=== PATIENT | male | born 1950 | race Caucasian/White ===

== ENCOUNTER 2016-09-13 01:12 | Emergency (ER) | payer MEDICARE ==
[~2016-09-13] VITALS: Ht 170.2 cm; Wt 75.9 kg
[~2016-09-13 01:12] MED LIST: AMANL PO; BENZ1TAB10 PO; DOCU-119 PO; LEVO50 PO; LISI-662 PO; OMEP20 PO; QUET100T PO; ROPI3TAB PO; SERT50TA12 PO; STAL150 PO; VITAD1000 PO
[2016-09-13 02:05] LABS: BASOPHILS # (AUTO) 0.03 K/uL (0.00-0.20); BASOPHILS % (AUTO) 0.6 % (0.0-2.0); EOSINOPHILS # (AUTO) 0.49 K/uL (0.00-0.70); LYMPHOCYTES % (AUTO) 16.8 % (22.0-44.0); MEAN CORPUSCULAR HEMOGLOBIN 30.6 pg (26.0-34.0); MEAN CORPUSCULAR HGB CONC 33.5 G/dL (31.0-37.0); MEAN CORPUSCULAR VOLUME 91 fL (80-100); MONOCYTES # (AUTO) 0.7 K/uL (0.1-1.0); NEUTROPHILS # (AUTO) 3.8 K/uL (1.8-7.7); NEUTROPHILS % (AUTO) 63.4 % (40.0-70.0); PLATELET COUNT (AUTO) 173 K/uL (150-450); RED BLOOD CELL COUNT(AUTO) 4.27 MIL/uL (4.50-5.90); RED CELL DISTRIBUTION WIDTH 13.9 % (11.5-14.5)
[2016-09-13 02:19] LABS: ANION GAP 7 mmol/L (8-16); CARBON DIOXIDE 30 mmol/L (22-29); CHLORIDE 105 mmol/L (98-107); CREATININE 1.28 mg/dL (0.60-1.30); GLOMERULAR FILTR. RATE CALC 56 mL/min (>60); POTASSIUM 3.9 mmol/L (3.5-5.1); SODIUM SERUM 142 mmol/L (136-145); UREA NITROGEN, BLOOD 26 mg/dL (7-18)
[2016-09-13 02:21] LABS: ALANINE AMINOTRANSFERASE 7 U/L (12-78); ALBUMIN 3.7 g/dL (3.4-5.0); ASPARTATE AMINOTRANSFERASE 19 U/L (15-37); BILIRUBIN,TOTAL 0.6 mg/dL (0.1-1.0); TOTAL PROTEIN, SERUM 7.8 g/dL (6.4-8.2)
[2016-09-13] MEDS ORDERED: LORazepam 1 MG TABLET PO ONE (05:00)
[2016-09-13 05:42] VITALS: BP 119/86
== END 2016-09-13 06:33 | disposition home or self-care (01) ==
LOC: EMS 01:14
DX: F25.9 Schizoaffective disorder, unspecified (principal); F41.9 Anxiety disorder, unspecified; F32.9 Major depressive disorder, single episode, unspecified; I10 Essential (primary) hypertension; E78.00 Pure hypercholesterolemia, unspecified; E03.9 Hypothyroidism, unspecified; K21.9 Gastro-esophageal reflux disease without esophagitis
CPT/HCPCS: 36415; 80053; 85025; 99285; G0480

== ENCOUNTER 2016-09-16 14:15 | Emergency (ER) | payer MEDICARE ==
[2016-09-16] MEDS ORDERED: FAMO20 PO (23:28)
[2016-09-16] MEDS ORDERED: AMAN100C12 PO (23:28)
[2016-09-16] MEDS ORDERED: LISI-662 PO (23:28)
[2016-09-16] MEDS ORDERED: ENTA200 PO (23:28)
[2016-09-16] MEDS ORDERED: ROPI2 PO (23:28)
[2016-09-16] MEDS ORDERED: BENZ1TAB10 PO (23:28)
[2016-09-16] MEDS ORDERED: QUET100T PO (23:28)
[2016-09-16] MEDS ORDERED: SERT50TA12 PO (23:28)
[2016-09-16] MEDS ORDERED: ENOX40DI9 SQ (23:28)
[2016-09-16] MEDS ORDERED: DSS100 PO (23:28)
[2016-09-16] MEDS ORDERED: CARB1TAB41 PO (23:28)
[2016-09-16] MEDS ORDERED: LEVO50 PO (23:28)
== END 2016-09-16 15:54 | disposition left against medical advice (07) ==
LOC: EMS 14:18
DX: Z00.8 Encounter for other general examination (principal); Z53.21 Procedure and treatment not carried out due to patient leaving prior to being seen by health care provider

== ENCOUNTER 2016-09-16 16:32 | Emergency (ER) | payer MEDICARE ==
[~2016-09-16] VITALS: Ht 172.7 cm; Wt 77.3 kg
[2016-09-16] MEDS ORDERED: HALOPERIDOL 5 MG TABLET PO ONE (18:30)
[2016-09-16] MEDS ORDERED: LORazepam 2 MG TABLET PO ONE (18:30)
[2016-09-16 18:41] LABS: BASOPHILS % (AUTO) 0.1 % (0.0-2.0); EOSINOPHILS % (AUTO) 4.6 % (1.0-6.0); HEMOGLOBIN 13.3 g/dL (13.5-17.5); LYMPHOCYTES % (AUTO) 12.2 % (22.0-44.0); MEAN CORPUSCULAR HEMOGLOBIN 30.2 pg (26.0-34.0); MEAN CORPUSCULAR HGB CONC 32.5 G/dL (31.0-37.0); MEAN CORPUSCULAR VOLUME 93 fL (80-100); MONOCYTES # (AUTO) 0.8 K/uL (0.1-1.0); MONOCYTES % (AUTO) 10.1 % (2.0-9.0); NEUTROPHILS # (AUTO) 5.9 K/uL (1.8-7.7); PLATELET COUNT (AUTO) 176 K/uL (150-450); RED BLOOD CELL COUNT(AUTO) 4.42 MIL/uL (4.50-5.90); RED CELL DISTRIBUTION WIDTH 13.4 % (11.5-14.5); WHITE BLOOD COUNT (AUTO) 8.1 K/uL (4.5-11.0)
[2016-09-16 18:50] LABS: ANION GAP 9 mmol/L (8-16); CALCIUM, TOTAL 9.2 mg/dL (8.8-10.5); CARBON DIOXIDE 29 mmol/L (22-29); CHLORIDE 106 mmol/L (98-107); CREATININE 1.26 mg/dL (0.60-1.30); GLOMERULAR FILTR. RATE CALC 57 mL/min (>60); POTASSIUM 4.3 mmol/L (3.5-5.1); SODIUM SERUM 144 mmol/L (136-145); UREA NITROGEN, BLOOD 25 mg/dL (7-18)
[2016-09-16 18:56] LABS: ALANINE AMINOTRANSFERASE 8 U/L (12-78); ALBUMIN 3.8 g/dL (3.4-5.0); ASPARTATE AMINOTRANSFERASE 22 U/L (15-37); BILIRUBIN,TOTAL 0.7 mg/dL (0.1-1.0); TOTAL PROTEIN, SERUM 7.9 g/dL (6.4-8.2)
[2016-09-16 20:21] VITALS: BP 108/65
[2016-09-16] MEDS ORDERED: DSS100 PO (23:28)
[2016-09-16] MEDS ORDERED: LISI-662 PO (23:28)
[2016-09-16] MEDS ORDERED: SERT50TA12 PO (23:28)
[2016-09-16] MEDS ORDERED: ROPI2 PO (23:28)
[2016-09-16] MEDS ORDERED: CARB1TAB41 PO (23:28)
[2016-09-16] MEDS ORDERED: AMAN100C12 PO (23:28)
[2016-09-16] MEDS ORDERED: QUET100T PO (23:28)
[2016-09-16] MEDS ORDERED: FAMO20 PO (23:28)
[2016-09-16] MEDS ORDERED: ENTA200 PO (23:28)
[2016-09-16] MEDS ORDERED: BENZ1TAB10 PO (23:28)
[2016-09-16] MEDS ORDERED: LEVO50 PO (23:28)
[2016-09-16] MEDS ORDERED: ENOX40DI9 SQ (23:28)
== END 2016-09-16 20:24 | disposition home or self-care (01) ==
LOC: EDBD → EMS 16:34 → MERGE 16:34 → EMS 20:24
DX: F25.9 Schizoaffective disorder, unspecified (principal); F32.9 Major depressive disorder, single episode, unspecified; I10 Essential (primary) hypertension; E03.9 Hypothyroidism, unspecified; K21.9 Gastro-esophageal reflux disease without esophagitis
CPT/HCPCS: 36415; 80053; 85025; 99285; G0480

== ENCOUNTER 2016-09-16 21:01 | Emergency (ER) | payer MEDICARE ==
[~2016-09-16] VITALS: Ht 175.3 cm; Wt 88.6 kg
[2016-09-16 21:22] LABS: GLUCOSE,POINT OF CARE 72 MG/DL (70-110)
[2016-09-16] MEDS ORDERED: SODIUM CHLORIDE 0.9% 1,000 ML IV ONE (21:45)
[2016-09-16] MEDS ORDERED: BENZTROPINE MESYLATE 1 MG/ML 2 ML AMP IVP ONE ×2 (22:15→23:00)
[2016-09-16] MEDS ORDERED: ENTA200 PO (23:28)
[2016-09-16] MEDS ORDERED: LISI-662 PO (23:28)
[2016-09-16] MEDS ORDERED: ENOX40DI9 SQ (23:28)
[2016-09-16] MEDS ORDERED: QUET100T PO (23:28)
[2016-09-16] MEDS ORDERED: CARB1TAB41 PO (23:28)
[2016-09-16] MEDS ORDERED: SERT50TA12 PO (23:28)
[2016-09-16] MEDS ORDERED: ROPI2 PO (23:28)
[2016-09-16] MEDS ORDERED: LEVO50 PO (23:28)
[2016-09-16] MEDS ORDERED: BENZ1TAB10 PO (23:28)
[2016-09-16] MEDS ORDERED: FAMO20 PO (23:28)
[2016-09-16] MEDS ORDERED: AMAN100C12 PO (23:28)
[2016-09-16] MEDS ORDERED: DSS100 PO (23:28)
[2016-09-17 07:21] LABS: EOSINOPHILS % (AUTO) 6.5 % (1.0-6.0); HEMATOCRIT 40.8 % (41-53); HEMOGLOBIN 13.4 g/dL (13.5-17.5); LYMPHOCYTES % (AUTO) 18.4 % (22.0-44.0); MEAN CORPUSCULAR HEMOGLOBIN 30.2 pg (26.0-34.0); MEAN CORPUSCULAR HGB CONC 32.8 G/dL (31.0-37.0); MEAN CORPUSCULAR VOLUME 92 fL (80-100); MONOCYTES # (AUTO) 0.7 K/uL (0.1-1.0); NEUTROPHILS # (AUTO) 3.5 K/uL (1.8-7.7); NEUTROPHILS % (AUTO) 62.1 % (40.0-70.0); PLATELET COUNT (AUTO) 174 K/uL (150-450); RED BLOOD CELL COUNT(AUTO) 4.43 MIL/uL (4.50-5.90); RED CELL DISTRIBUTION WIDTH 13.3 % (11.5-14.5); WHITE BLOOD COUNT (AUTO) 5.6 K/uL (4.5-11.0)
[2016-09-17 07:38] LABS: APPEARANCE,URINE CLEAR (CLEAR); GLUCOSE, URINE (UA) NEGATIVE (NEGATIVE); KETONES,URINE TRACE mg/dL (NEGATIVE); LEUKOCYTE ESTERASE ,URINE NEGATIVE (NEGATIVE); OCCULT BLOOD,URINE NEGATIVE (NEGATIVE); PROTEIN,URINE NEGATIVE (NEGATIVE)
[2016-09-17 07:39] LABS: ADD UA MICROSCOPIC NO
[2016-09-17 07:44] LABS: ALANINE AMINOTRANSFERASE 22 U/L (12-78); ALBUMIN 3.5 g/dL (3.4-5.0); ANION GAP 7 mmol/L (8-16); ASPARTATE AMINOTRANSFERASE 22 U/L (15-37); BILIRUBIN,TOTAL 0.8 mg/dL (0.1-1.0); CALCIUM, TOTAL 8.6 mg/dL (8.8-10.5); CARBON DIOXIDE 31 mmol/L (22-29); CHLORIDE 107 mmol/L (98-107); CREATININE 0.96 mg/dL (0.60-1.30); GLOMERULAR FILTR. RATE CALC > 60 mL/min (>60); POTASSIUM 3.9 mmol/L (3.5-5.1); SODIUM SERUM 145 mmol/L (136-145); THYROID STIMULATING HORMONE 3.52 uIU/mL (0.36-3.74); TOTAL PROTEIN, SERUM 7.4 g/dL (6.4-8.2); UREA NITROGEN, BLOOD 22 mg/dL (7-18)
[2016-09-17 07:47] LABS: GLUCOSE COMMENT 1 Doctor Notified; GLUCOSE,POINT OF CARE 59 MG/DL (70-110)
[2016-09-17 07:51] LABS: GLUCOSE COMMENT 1 Juice/Food/D50 Given; GLUCOSE,POINT OF CARE 59 MG/DL (70-110)
[2016-09-17 08:11] LABS: GLUCOSE,POINT OF CARE 62 MG/DL (70-110)
[2016-09-17 09:27] LABS: GLUCOSE,POINT OF CARE 78 MG/DL (70-110)
[2016-09-17 09:27] LABS: GLUCOSE COMMENT 1 Doctor Notified; GLUCOSE,POINT OF CARE 61 MG/DL (70-110)
[2016-09-17] MEDS ORDERED: GADOBUTROL 1 MMOL/ML 10 ML VIAL IVP ONE (13:23)
[2016-09-17 17:53] VITALS: BP 147/83
== END 2016-09-17 18:56 | disposition home or self-care (01) ==
LOC: EDBD → EMS 21:03 → MERGE 21:03 → EMS 09-17 18:56
DX: F25.9 Schizoaffective disorder, unspecified (principal); F32.9 Major depressive disorder, single episode, unspecified; F03.90 Unspecified dementia, unspecified severity, without behavioral disturbance, psychotic disturbance, mood disturbance, and anxiety; K21.9 Gastro-esophageal reflux disease without esophagitis; I10 Essential (primary) hypertension; E03.9 Hypothyroidism, unspecified
CPT/HCPCS: 36415; 51702; 70450; 70553; 80053; 80307; 81003; 82962; 84443; 85025; 96361; 96374; 96376; 99285; A9585; J0515; J7030

== ENCOUNTER 2016-09-26 14:45 | Emergency (ER) | payer MEDICARE ==
[~2016-09-26] VITALS: Ht 167.6 cm; Wt 72.0 kg
[~2016-09-26 14:45] MED LIST changes: +AMAN100C12 PO; +CARB1TAB41 PO; +DSS100 PO; +ENOX40DI9 SQ; +ENTA200 PO; +FAMO20 PO; +ROPI2 PO
[2016-09-26] MEDS ORDERED: ACETAMINOPHEN 500 MG TABLET PO ONE (15:00)
[2016-09-26] MEDS ORDERED: SODIUM CHLORIDE 0.9% 1,000 ML IV ONE (15:00)
[2016-09-26 15:21] LABS: BASOPHILS % (AUTO) 0.3 % (0.0-2.0); EOSINOPHILS % (AUTO) 2.2 % (1.0-6.0); HEMATOCRIT 32.9 % (41-53); HEMOGLOBIN 10.6 g/dL (13.5-17.5); LYMPHOCYTES # (AUTO) 0.9 K/uL (1.0-4.8); LYMPHOCYTES % (AUTO) 8.2 % (22.0-44.0); MEAN CORPUSCULAR HEMOGLOBIN 29.7 pg (26.0-34.0); MEAN CORPUSCULAR HGB CONC 32.4 G/dL (31.0-37.0); MEAN CORPUSCULAR VOLUME 92 fL (80-100); MONOCYTES # (AUTO) 1.3 K/uL (0.1-1.0); MONOCYTES % (AUTO) 11.7 % (2.0-9.0); NEUTROPHILS # (AUTO) 8.4 K/uL (1.8-7.7); NEUTROPHILS % (AUTO) 77.6 % (40.0-70.0); PLATELET COUNT (AUTO) 200 K/uL (150-450); RED BLOOD CELL COUNT(AUTO) 3.58 MIL/uL (4.50-5.90); RED CELL DISTRIBUTION WIDTH 13.4 % (11.5-14.5); WHITE BLOOD COUNT (AUTO) 10.9 K/uL (4.5-11.0)
[2016-09-26] MEDS ORDERED: FAMO20 PO (15:21)
[2016-09-26] MEDS ORDERED: CEPH500 PO (15:21)
[2016-09-26] MEDS ORDERED: ENOX40DI9 SQ (15:21)
[2016-09-26 15:22] LABS: APPEARANCE,URINE TURBID (CLEAR); GLUCOSE, URINE (UA) NEGATIVE (NEGATIVE); KETONES,URINE TRACE mg/dL (NEGATIVE); LEUKOCYTE ESTERASE ,URINE SMALL (NEGATIVE); OCCULT BLOOD,URINE LARGE (NEGATIVE); PH,URINE 5.5 (5.0-8.0); PROTEIN,URINE SEE CONFIRM (NEGATIVE)
[2016-09-26 15:23] LABS: ADD UA MICROSCOPIC YES
[2016-09-26 15:25] LABS: RBC,URINE 51-100 /HPF (0-2); SQUAMOUS EPITHELIAL CELL,UR Few /LPF (None Seen); SULFOSALICYLIC ACID,URINE 3+ (Negative); WBC,URINE 26-50 /HPF (0-5)
[2016-09-26 15:31] LABS: ANION GAP 7 mmol/L (8-16); CALCIUM, TOTAL 7.8 mg/dL (8.8-10.5); CARBON DIOXIDE 29 mmol/L (22-29); CHLORIDE 99 mmol/L (98-107); CREATININE 1.03 mg/dL (0.60-1.30); GLOMERULAR FILTR. RATE CALC > 60 mL/min (>60); POTASSIUM 3.9 mmol/L (3.5-5.1); SODIUM SERUM 135 mmol/L (136-145); UREA NITROGEN, BLOOD 20 mg/dL (7-18)
[2016-09-26 15:37] LABS: ALANINE AMINOTRANSFERASE 13 U/L (12-78); ALBUMIN 2.7 g/dL (3.4-5.0); ASPARTATE AMINOTRANSFERASE 26 U/L (15-37); BILIRUBIN,TOTAL 0.4 mg/dL (0.1-1.0)
[2016-09-26 15:57] LABS: LACTIC ACID 1.1 mmol/L (0.4-2.0)
[2016-09-26] MEDS ORDERED: AMAN100C12 PO (17:29)
[2016-09-26] MEDS ORDERED: CefTRIAXone 1 GM/DEXTROSE 50 ML IV ONE (17:30)
[2016-09-26 19:08] VITALS: BP 100/60
== END 2016-09-26 19:44 | disposition home or self-care (01) ==
LOC: EMS 14:47
DX: N39.0 Urinary tract infection, site not specified (principal); G20 Parkinson's disease; K21.9 Gastro-esophageal reflux disease without esophagitis; E78.00 Pure hypercholesterolemia, unspecified; E03.9 Hypothyroidism, unspecified; M54.30 Sciatica, unspecified side
CPT/HCPCS: 36415; 80053; 81001; 81002; 83605; 85025; 87040; 87086; 96361; 96365; 99285; J0696; J7030

== ENCOUNTER → 2016-11-19 | Outpatient (CLI) | payer MEDICARE ==
[~2016-11-19] MED LIST changes: -AMANL PO; +CEPH500 PO; -OMEP20 PO
== END | disposition home or self-care (01) ==
LOC: RADMN 09:01
PROVIDERS: ATTEND Psychiatry & Neurology Neurology
DX: G20 Parkinson's disease (principal); G31.9 Degenerative disease of nervous system, unspecified; I67.82 Cerebral ischemia; G93.89 Other specified disorders of brain; G93.0 Cerebral cysts; R90.82 White matter disease, unspecified
CPT/HCPCS: 70551

== ENCOUNTER 2017-03-01 19:11 | Emergency (ER) | payer MEDICARE ==
[~2017-03-01] VITALS: Ht 170.2 cm; Wt 74.0 kg
[2017-03-01] MEDS ORDERED: FAMO20 PO (19:35)
[2017-03-01] MEDS ORDERED: MULT1TAB70 PO (19:35)
[2017-03-01] MEDS ORDERED: HALO1 PO ×2 (19:35)
[2017-03-01] MEDS ORDERED: ASCO500 PO (19:35)
[2017-03-01 20:44] LABS: BASOPHILS % (AUTO) 0.6 % (0.0-2.0); EOSINOPHILS % (AUTO) 11.3 % (1.0-6.0); HEMATOCRIT 30.9 % (41-53); HEMOGLOBIN 10.6 g/dL (13.5-17.5); LYMPHOCYTES # (AUTO) 1.4 K/uL (1.0-4.8); MEAN CORPUSCULAR HEMOGLOBIN 31.9 pg (26.0-34.0); MEAN CORPUSCULAR HGB CONC 34.5 G/dL (31.0-37.0); MEAN CORPUSCULAR VOLUME 92 fL (80-100); MONOCYTES # (AUTO) 0.5 K/uL (0.1-1.0); MONOCYTES % (AUTO) 9.2 % (2.0-9.0); NEUTROPHILS % (AUTO) 53.9 % (40.0-70.0); PLATELET COUNT (AUTO) 295 K/uL (150-450); RED BLOOD CELL COUNT(AUTO) 3.34 MIL/uL (4.50-5.90); RED CELL DISTRIBUTION WIDTH 14.4 % (11.5-14.5); WHITE BLOOD COUNT (AUTO) 5.6 K/uL (4.5-11.0)
[2017-03-01 20:52] LABS: ANION GAP 8 mmol/L (8-16); CALCIUM, TOTAL 9.1 mg/dL (8.8-10.5); CARBON DIOXIDE 27 mmol/L (22-29); CHLORIDE 103 mmol/L (98-107); GLOMERULAR FILTR. RATE CALC > 60 mL/min (>60); POTASSIUM 4.4 mmol/L (3.5-5.1); SODIUM SERUM 138 mmol/L (136-145); UREA NITROGEN, BLOOD 29 mg/dL (7-18)
[2017-03-01 20:59] LABS: ALANINE AMINOTRANSFERASE 18 U/L (12-78); ALBUMIN 3.3 g/dL (3.4-5.0); ASPARTATE AMINOTRANSFERASE 22 U/L (15-37); BILIRUBIN,TOTAL 0.3 mg/dL (0.1-1.0); TOTAL PROTEIN, SERUM 7.8 g/dL (6.4-8.2)
[2017-03-01 21:35] VITALS: BP 117/76
[2017-03-02] MEDS ORDERED: ASCO500 PO (14:34)
== END 2017-03-01 21:54 | disposition home or self-care (01) ==
LOC: EMS 19:12
DX: R05 Cough (principal); G20 Parkinson's disease; E03.9 Hypothyroidism, unspecified; E78.00 Pure hypercholesterolemia, unspecified; K21.9 Gastro-esophageal reflux disease without esophagitis; F20.9 Schizophrenia, unspecified; F32.9 Major depressive disorder, single episode, unspecified; I10 Essential (primary) hypertension
CPT/HCPCS: 99285

== ENCOUNTER 2017-03-02 11:13 | Inpatient (IN) | payer MEDICARE ==
[~2017-03-02] VITALS: Ht 167.6 cm; Wt 67.8 kg
[~2017-03-02 11:13] MED LIST changes: +ASCO500 PO; +HALO1 PO; +MULT1TAB70 PO
[2017-03-02] MEDS ORDERED: SODIUM CHLORIDE 0.9% 1,000 ML IV ONE ×2 (12:00→14:15)
[2017-03-02 12:23] LABS: BASOPHILS % (AUTO) 0.4 % (0.0-2.0); EOSINOPHILS % (AUTO) 6.7 % (1.0-6.0); HEMATOCRIT 31.4 % (41-53); HEMOGLOBIN 10.9 g/dL (13.5-17.5); LYMPHOCYTES % (AUTO) 14.3 % (22.0-44.0); MEAN CORPUSCULAR HEMOGLOBIN 31.8 pg (26.0-34.0); MEAN CORPUSCULAR HGB CONC 34.6 G/dL (31.0-37.0); MEAN CORPUSCULAR VOLUME 92 fL (80-100); MONOCYTES # (AUTO) 0.5 K/uL (0.1-1.0); MONOCYTES % (AUTO) 7.7 % (2.0-9.0); NEUTROPHILS # (AUTO) 4.7 K/uL (1.8-7.7); NEUTROPHILS % (AUTO) 70.9 % (40.0-70.0); PLATELET COUNT (AUTO) 306 K/uL (150-450); RED BLOOD CELL COUNT(AUTO) 3.42 MIL/uL (4.50-5.90); WHITE BLOOD COUNT (AUTO) 6.7 K/uL (4.5-11.0)
[2017-03-02 12:32] LABS: ANION GAP 13 mmol/L (8-16); CALCIUM, TOTAL 9.2 mg/dL (8.8-10.5); CARBON DIOXIDE 23 mmol/L (22-29); CHLORIDE 102 mmol/L (98-107); CREATININE 0.92 mg/dL (0.60-1.30); GLOMERULAR FILTR. RATE CALC > 60 mL/min (>60); POTASSIUM 4.2 mmol/L (3.5-5.1); SODIUM SERUM 138 mmol/L (136-145); UREA NITROGEN, BLOOD 28 mg/dL (7-18)
[2017-03-02 12:38] LABS: ALANINE AMINOTRANSFERASE 9 U/L (12-78); ALBUMIN 3.6 g/dL (3.4-5.0); ASPARTATE AMINOTRANSFERASE 21 U/L (15-37); BILIRUBIN,TOTAL 0.3 mg/dL (0.1-1.0); CREATINE KINASE, TOTAL 64 U/L (39-308); TOTAL PROTEIN, SERUM 8.2 g/dL (6.4-8.2)
[2017-03-02 12:40] LABS: LACTIC ACID 0.9 mmol/L (0.4-2.0)
[2017-03-02] MEDS ORDERED: ACETAMINOPHEN 325 MG TABLET PO PRN ×2 (12:45→14:15)
[2017-03-02] MEDS ORDERED: 0.9% SODIUM CHLORIDE 10 ML SYRINGE IVP PRN (12:45)
[2017-03-02] MEDS ORDERED: ONDANSETRON HCL 4 MG/2 ML VIAL IVP PRN ×2 (12:45→14:15)
[2017-03-02 12:46] LABS: B-TYPE NATRIURETIC PEPTIDE 17 pg/mL (0-100)
[2017-03-02 13:27] LABS: GLUCOSE, URINE (UA) NEGATIVE (NEGATIVE); KETONES,URINE TRACE mg/dL (NEGATIVE); LEUKOCYTE ESTERASE ,URINE SMALL (NEGATIVE); OCCULT BLOOD,URINE NEGATIVE (NEGATIVE); PH,URINE 5.5 (5.0-8.0); PROTEIN,URINE NEGATIVE (NEGATIVE)
[2017-03-02 13:33] LABS: ADD UA MICROSCOPIC YES; APPEARANCE,URINE HAZY (CLEAR)
[2017-03-02 13:34] LABS: FINE GRANULAR CASTS,URINE 0-2 /LPF (None Seen); RBC,URINE None Seen /HPF (0-2)
[2017-03-02 14:02] VITALS: BP 131/82
[2017-03-02] MEDS ORDERED: HYDROCODONE/ACETAMINOPHEN 5-325 MG TABLET PO PRN (14:15)
[2017-03-02] MEDS ORDERED: MORPHINE SULFATE 2 MG/ML SYRINGE IVP PRN (14:15)
[2017-03-02] MEDS ORDERED: ZOLPIDEM TARTRATE 5 MG TABLET PO PRN (14:15)
[2017-03-02] MEDS ORDERED: MAGNESIUM HYDROXIDE SUSPENSION 30 ML UDCUP PO PRN (14:15)
[2017-03-02] MEDS ORDERED: BISACODYL 10 MG RECTAL RECTAL SUPPOSITORY PR PRN (14:15)
[2017-03-02] MEDS ORDERED: ASCO500 PO (14:34)
[2017-03-02] MEDS: AMANTADINE HCL 100 MG CAPSULE PO SCH ×2 (15:59→21:53)
[2017-03-02] MEDS: CefTRIAXone 1 GM/DEXTROSE 50 ML IV SCH (16:01)
[2017-03-02] MEDS: HEPARIN SODIUM,PORCINE 5,000 UNITS/ML VIAL SQ SCH (16:01)
[2017-03-02 16:20] VITALS: BP 129/80
[2017-03-02 19:10] VITALS: BP 114/75
[2017-03-02] MEDS ORDERED: CARBIDOPA/LEVODOPA/ENTACAPONE 25-100-200 MG TABLET PO SCH (21:00)
[2017-03-02] MEDS: DOCUSATE SODIUM 100 MG CAPSULE PO SCH (21:52)
[2017-03-02] MEDS: ROPINIRole HCL 1 MG TABLET PO SCH (21:53)
[2017-03-02 23:53] VITALS: BP 106/63
[2017-03-03] MEDS: HEPARIN SODIUM,PORCINE 5,000 UNITS/ML VIAL SQ SCH ×3 (00:41→16:57)
[2017-03-03 04:46] VITALS: BP 103/63
[2017-03-03] MEDS: LEVOTHYROXINE SODIUM 50 MCG TABLET PO SCH (06:20)
[2017-03-03 07:32] LABS: GLUCOSE,POINT OF CARE 83 MG/DL (70-110)
[2017-03-03 08:10] VITALS: BP 132/81
[2017-03-03] MEDS: DOCUSATE SODIUM 100 MG CAPSULE PO SCH ×2 (09:04→20:10)
[2017-03-03] MEDS: PANTOPRAZOLE SODIUM 40 MG DR TABLET PO SCH (09:04)
[2017-03-03] MEDS: ROPINIRole HCL 1 MG TABLET PO SCH ×3 (09:05→20:11)
[2017-03-03] MEDS: ASCORBIC ACID 500 MG TABLET PO SCH (09:05)
[2017-03-03] MEDS: LEVODOPA PO SCH ×3 (09:06→20:10)
[2017-03-03] MEDS: AMANTADINE HCL 100 MG CAPSULE PO SCH ×4 (09:06→20:10)
[2017-03-03] MEDS: ENTACAPONE PO SCH ×3 (09:06→20:10)
[2017-03-03] MEDS: CARBIDOPA PO SCH ×3 (09:06→20:10)
[2017-03-03 11:25] VITALS: BP 149/63
[2017-03-03 15:14] VITALS: BP 96/60
[2017-03-03] MEDS: CefTRIAXone 1 GM/DEXTROSE 50 ML IV SCH (16:55)
[2017-03-03 19:28] VITALS: BP 111/88
[2017-03-03 23:57] VITALS: BP 166/75
[2017-03-04] MEDS: HEPARIN SODIUM,PORCINE 5,000 UNITS/ML VIAL SQ SCH ×3 (00:41→17:51)
[2017-03-04 04:00] VITALS: BP 148/71
[2017-03-04] MEDS: LEVOTHYROXINE SODIUM 50 MCG TABLET PO SCH (06:18)
[2017-03-04 07:17] VITALS: BP 102/63
[2017-03-04] MEDS: DOCUSATE SODIUM 100 MG CAPSULE PO SCH ×2 (07:51→22:23)
[2017-03-04] MEDS: PANTOPRAZOLE SODIUM 40 MG DR TABLET PO SCH (07:51)
[2017-03-04] MEDS: AMANTADINE HCL 100 MG CAPSULE PO SCH ×4 (07:51→22:04)
[2017-03-04] MEDS: CARBIDOPA PO SCH ×3 (07:52→22:00)
[2017-03-04] MEDS: LEVODOPA PO SCH ×3 (07:52→22:00)
[2017-03-04] MEDS: ASCORBIC ACID 500 MG TABLET PO SCH (07:52)
[2017-03-04] MEDS: ENTACAPONE PO SCH ×3 (07:52→22:00)
[2017-03-04] MEDS: ROPINIRole HCL 1 MG TABLET PO SCH ×3 (10:18→22:01)
[2017-03-04 12:02] VITALS: BP 147/75
[2017-03-04 15:27] VITALS: BP 140/71
[2017-03-04] MEDS: CefTRIAXone 1 GM/DEXTROSE 50 ML IV SCH (17:51)
[2017-03-04] MEDS ORDERED: SODIUM CHLORIDE 0.9% 100 ML ONE (18:02)
[2017-03-04 19:21] VITALS: BP 129/71
[2017-03-05] VITALS: BP 105/71
[2017-03-05] MEDS: HEPARIN SODIUM,PORCINE 5,000 UNITS/ML VIAL SQ SCH ×3 (00:35→16:23)
[2017-03-05 05:02] VITALS: BP 111/64
[2017-03-05] MEDS: LEVOTHYROXINE SODIUM 50 MCG TABLET PO SCH (06:03)
[2017-03-05 07:40] VITALS: BP 122/79
[2017-03-05] MEDS: ENTACAPONE PO SCH ×2 (08:26→16:22)
[2017-03-05] MEDS: CARBIDOPA PO SCH ×2 (08:26→16:22)
[2017-03-05] MEDS: AMANTADINE HCL 100 MG CAPSULE PO SCH ×3 (08:26→16:23)
[2017-03-05] MEDS: LEVODOPA PO SCH ×2 (08:26→16:22)
[2017-03-05] MEDS: ROPINIRole HCL 1 MG TABLET PO SCH ×2 (08:26→16:22)
[2017-03-05] MEDS: ASCORBIC ACID 500 MG TABLET PO SCH (08:27)
[2017-03-05] MEDS: PANTOPRAZOLE SODIUM 40 MG DR TABLET PO SCH (08:27)
[2017-03-05] MEDS: DOCUSATE SODIUM 100 MG CAPSULE PO SCH (08:27)
[2017-03-05 11:16] VITALS: BP 107/65
[2017-03-05 15:04] LABS: BASOPHILS % (AUTO) 0.4 % (0.0-2.0); EOSINOPHILS % (AUTO) 12.2 % (1.0-6.0); HEMATOCRIT 30.1 % (41-53); HEMOGLOBIN 10.5 g/dL (13.5-17.5); LYMPHOCYTES # (AUTO) 1.9 K/uL (1.0-4.8); LYMPHOCYTES % (AUTO) 22.7 % (22.0-44.0); MEAN CORPUSCULAR HGB CONC 34.8 G/dL (31.0-37.0); MEAN CORPUSCULAR VOLUME 92 fL (80-100); MONOCYTES # (AUTO) 0.9 K/uL (0.1-1.0); MONOCYTES % (AUTO) 10.8 % (2.0-9.0); NEUTROPHILS # (AUTO) 4.5 K/uL (1.8-7.7); NEUTROPHILS % (AUTO) 53.9 % (40.0-70.0); PLATELET COUNT (AUTO) 261 K/uL (150-450); RED BLOOD CELL COUNT(AUTO) 3.27 MIL/uL (4.50-5.90); RED CELL DISTRIBUTION WIDTH 13.7 % (11.5-14.5); WHITE BLOOD COUNT (AUTO) 8.3 K/uL (4.5-11.0)
[2017-03-05 15:16] LABS: ANION GAP 10 mmol/L (8-16); CALCIUM, TOTAL 8.7 mg/dL (8.8-10.5); CARBON DIOXIDE 25 mmol/L (22-29); CHLORIDE 100 mmol/L (98-107); CREATININE 0.82 mg/dL (0.60-1.30); GLOMERULAR FILTR. RATE CALC > 60 mL/min (>60); POTASSIUM 4.4 mmol/L (3.5-5.1); SODIUM SERUM 135 mmol/L (136-145); UREA NITROGEN, BLOOD 15 mg/dL (7-18)
[2017-03-05 15:24] LABS: ALANINE AMINOTRANSFERASE 12 U/L (12-78); ALBUMIN 3.2 g/dL (3.4-5.0); ASPARTATE AMINOTRANSFERASE 44 U/L (15-37); BILIRUBIN,TOTAL 0.3 mg/dL (0.1-1.0); TOTAL PROTEIN, SERUM 7.5 g/dL (6.4-8.2)
[2017-03-05 15:55] VITALS: BP 107/67
[2017-03-05] MEDS ORDERED: PANT40TA25 PO (16:46)
[2017-03-05] MEDS ORDERED: HALO5 PO (16:46)
[2017-03-05] MEDS ORDERED: CARB1TAB13 PO (16:46)
[2017-03-05] MEDS ORDERED: HEPA500017 SQ (16:46)
[2017-03-05] MEDS ORDERED: MOM30 PO (16:46)
[2017-03-05] MEDS ORDERED: ACET-2902 PO (16:46)
[2017-03-05] MEDS ORDERED: BISA10S PR (16:46)
== END 2017-03-05 16:40 | DRG 56 ==
LOC: EMS 11:15 → 5S 12:38 → 6N 03-04 18:59
PROVIDERS: ADMIT Internal Medicine; ATTEND Internal Medicine
DX: G20 Parkinson's disease (principal); G93.41 Metabolic encephalopathy; F10.921 Alcohol use, unspecified with intoxication delirium; N39.0 Urinary tract infection, site not specified; E86.0 Dehydration; I10 Essential (primary) hypertension; E03.9 Hypothyroidism, unspecified; D64.9 Anemia, unspecified; E78.00 Pure hypercholesterolemia, unspecified; E78.5 Hyperlipidemia, unspecified; F20.9 Schizophrenia, unspecified; K21.9 Gastro-esophageal reflux disease without esophagitis; M24.539 Contracture, unspecified wrist; K59.09 Other constipation; F32.9 Major depressive disorder, single episode, unspecified
CPT/HCPCS: 82962; 83605; 87081; 87086; 92610; 93005; 99291; J0696; J1644; J7030; J7050